=== PATIENT | female | born 1995 | race African-American/Black ===

== ENCOUNTER 2022-04-07 16:31 | Emergency (ER) | payer SELFPAY ==
[~2022-04-07 16:31] MED LIST: GASTROGRAFIN 30 ML BOT ONE; Iopamidol 300 61% 100 ML VIAL FS ONE
[2022-04-07 17:17] LABS: Bilirubin Neg (Negative); Blood, Urine 150 (Negative); Clarity Cloudy (Clear); Glucose, Urine (Dipstick) Normal (Negative); Ketone, Urine Negative (Negative); Leukocyte 500 (Negative); Nitrite Negative (Negative); Protein, Urine (Dipstick) 30 mg/dl (Neg-Trace); Specific Gravity, Urine 1.005 (1.002-1.036); Urobilinogen Normal mg/dL (Less than 2)
[2022-04-07 17:19] LABS: Pregnancy Test - Urine (BHCG) Negative (Negative); Pregu Control Background? CLEAR/WHITE (CLR/WHITE); Pregu Control Bar Appear? YES (CONTROL BAR); Specific Gravity 1.005 (1.002-1.036)
[2022-04-07 17:31] LABS: #Monocytes 0.4 10x3/uL (0.0-1.1); #Neutrophils 6.7 10x3/uL (1.5-8.4); %Basophils 0.3 % (0.0-2.0); %Eosinophils 0.2 % (0.0-6.0); %Lymphocytes 19.1 % (18.0-47.0); %Monocytes 4.9 % (0.0-10.0); %Neutrophils 75.2 % (40.0-75.0); Mean Corpuscular HGB CONC 34.8 g/dL (32.0-36.0); Mean Corpuscular Volume 86.3 fl (81.6-98.3); Mean Platelet Volume 10.9 fl (7.4-10.4); Platelet Count 232 10x3/uL (150-450); RBC Distribution Width 12.5 % (11.5-14.5); White Blood Cell (WBC) Count 8.9 10x3/uL (3.5-10.5)
[2022-04-07 17:44] LABS: ALT (SGPT) 24 U/L (8-55); AST (SGOT) 25 U/L (5-34); Albumin 3.9 g/dL (3.5-5.0); Alkaline Phosphatase 47 U/L (40-110); Anion Gap 15 mmol/L (10-20); BUN (Urea Nitrogen) 10 mg/dL (7.0-18.7); Bilirubin, Total 0.7 mg/dL (0.2-1.2); Calc. Creatinine Clearance 0 mL/min (70-130); Calcium 9.2 mg/dL (7.8-10.44); Carbon Dioxide 18 mmol/L (22-29); Chloride 104 mmol/L (98-107); Estimated GFR 120; Globulin 3.5 g/dL (2.4-3.5); Glucose 90 mg/dL (70-105); Lipase 6 U/L (8-78); Potassium 3.4 mmol/L (3.5-5.1); Protein, Total 7.4 g/dL (6.0-8.3); Sodium 134 mmol/L (136-145)
[2022-04-07] MEDS ORDERED: Ondansetron PF 4 MG/2 ML Vial ONE (17:51)
[2022-04-07] MEDS ORDERED: Morphine 4 MG/ML VIAL ONE (17:51)
[2022-04-07 18:18] LABS: WBC/HPF Greater than 50 HPF (0-3)
[2022-04-07 18:19] LABS: Bacteria/HPF 3+ HPF (None Seen); Mucous/LPF 1+ LPF (<2+)
[2022-04-07 18:22] LABS: RBC/HPF 21-50 HPF (0-3)
[2022-04-07] MEDS ORDERED: cefTRIAXone\\ROCEPHIN 500 MG VIAL ONE (21:28)
[2022-04-07] MEDS ORDERED: Sterile Water 10 ML ONE (21:29)
[2022-04-09 13:47] LABS: Chlamydia by PCR Not Detected (NotDetected); GC by PCR Not Detected (NotDetected)
== END 2022-04-07 21:32 | disposition home or self-care (01) ==
LOC: CSHERS 16:31
DX: N30.00 Acute cystitis without hematuria (principal); N89.8 Other specified noninflammatory disorders of vagina; F17.210 Nicotine dependence, cigarettes, uncomplicated
CPT/HCPCS: 74177; 80053; 81003; 81015; 81025; 83690; 85025; 87480; 87491; 87510; 87591; 87660; 96361; 96372; 96374; 96375; J0696; J2270; J2405; Q9963; Q9967